=== PATIENT | female | born 1950 | race Caucasian/White ===

== ENCOUNTER → 2016-11-21 | Outpatient (REF) | payer OTHER ==
[2016-11-21 14:24] LABS: FERRITIN 501 NG/ML (8-252)
[2016-11-21 14:29] LABS: VITAMIN B12 LEVEL 420 PG/ML (247-911)
== END ==
LOC: M LAB REF 13:50
PROVIDERS: ATTEND Internal Medicine
DX: C95.01 Acute leukemia of unspecified cell type, in remission (principal); Z98.84 Bariatric surgery status

== ENCOUNTER → 2017-03-25 | Outpatient (REF) | payer OTHER | LOC: M LAB REF 12:03 | PROVIDERS: ATTEND Internal Medicine | DX: Z01.89 Encounter for other specified special examinations (principal) ==

== ENCOUNTER → 2017-04-17 | Outpatient (REF) | payer OTHER ==
[~2017-04-17] MED LIST: FIBE625T PO; FLUO40CA PO; VENL150C43 PO; VITA100067 PO
== END ==
LOC: M LAB REF 12:46
PROVIDERS: ATTEND Internal Medicine
DX: N39.0 Urinary tract infection, site not specified (principal)

== ENCOUNTER 2017-07-01 07:11 | Outpatient (CLI) | payer OTHER ==
[~2017-07-01] VITALS: Ht 162.6 cm; Wt 90.7 kg
[~2017-07-01 07:11] MED LIST changes: +LIDOCAINE 2% INJ 100 MG/5 ML SDV (FOR ANES.) As Ordered ONE; +PROPOFOL 200 MG/20 ML VIAL As Ordered ONE
[2017-07-01] MEDS ORDERED: NS 1,000 ML IV SCH (07:30)
--- NOTE | 2017-07-01 08:56 | ROOR ---
Patient Name: Albertina Brandt Procedure Date: 07/01/2017 8:27 AM Date of : 1950 Age: 67 Room: [facility] Gender: Female Note Status: Finalized Procedure: Total Colonoscopy to Cecum + Cold Snare Polypectomy + Hemoclip + Biopsies Indications: Clinically significant diarrhea of unexplained origin Providers: Igor Snell MD Referring MD: Bianka HAQUE MD Requesting Provider: Medicines: Monitored Anesthesia Care Complications: No immediate complications. Procedure: Pre-Anesthesia Assessment: - The heart rate, respiratory rate, oxygen saturations, blood pressure, adequacy of pulmonary ventilation, and response to care were monitored throughout the procedure. The Colonoscope was introduced through the anus and advanced to the cecum, identified by appendiceal orifice and ileocecal valve. The colonoscopy was performed without difficulty. The patient tolerated the procedure well. The quality of the bowel preparation was excellent. Findings: The perianal and digital rectal examinations were normal. Non-bleeding internal hemorrhoids were found during retroflexion. The hemorrhoids were mild, small and Grade I (internal hemorrhoids that do not prolapse). Two sessile polyps were found at 50 cm proximal to the anus. The polyps were small in size. These polyps were removed with a cold snare. Resection and retrieval were complete. To prevent bleeding after the polypectomy, one hemostatic clip was successfully placed (MR conditional). There was no bleeding at the end of the procedure. Biopsies for histology were taken with a cold forceps from the ascending colon, transverse colon and descending colon for evaluation of microscopic colitis. The exam was otherwise without abnormality on direct and retroflexion views. Impression: - Non-bleeding internal hemorrhoids. - Two small polyps at 50 cm proximal to the anus, removed with a cold snare. Resected and retrieved. Clip (MR conditional) was placed. - The examination was otherwise normal on direct and retroflexion views. - Biopsies were taken with a cold forceps from the ascending colon, transverse colon and descending colon for evaluation of microscopic colitis. - The exam was otherwise normal to the cecum. Recommendation: - Patient has a contact number available for emergencies. The signs and symptoms of potential delayed complications were discussed with the patient. Return to normal activities tomorrow. Written discharge instructions were provided to the patient. - High fiber diet. - Discharge patient to home. - Await pathology results. - Telephone GI clinic for pathology results in 1 week. - Telephone GI clinic for pathology results in 1 week. - Repeat colonoscopy in 5 years for surveillance based on pathology results. - Return to referring physician. - The findings and recommendations were discussed with the patient's family. Igor Snell MD Igor Snell MD 07/01/2017 8:55:58 AM This report has been signed electronically. Number of Addenda: 0 Note Initiated On: 07/01/2017 8:27 AM Estimated Blood Loss: Estimated blood loss: none.
[2017-07-01 09:20] VITALS: BP 139/87
== END 2017-07-01 09:35 | disposition home or self-care (01) ==
LOC: M OPP 07:11
PROVIDERS: ATTEND Internal Medicine Gastroenterology
DX: K58.0 Irritable bowel syndrome with diarrhea (principal); D12.5 Benign neoplasm of sigmoid colon; K64.0 First degree hemorrhoids; Z85.6 Personal history of leukemia; Z92.21 Personal history of antineoplastic chemotherapy; F41.9 Anxiety disorder, unspecified; F32.9 Major depressive disorder, single episode, unspecified; Z78.0 Asymptomatic menopausal state; Z98.84 Bariatric surgery status; Z88.5 Allergy status to narcotic agent; Z79.899 Other long term (current) drug therapy; Z80.42 Family history of malignant neoplasm of prostate; Z80.41 Family history of malignant neoplasm of ovary

== ENCOUNTER → 2017-10-08 | Outpatient (REF) | payer OTHER | LOC: M LAB REF 13:13 | DX: R19.7 Diarrhea, unspecified (principal) | CPT/HCPCS: 87507 ==

== ENCOUNTER → 2017-12-22 | Outpatient (CLI) | payer OTHER | LOC: M CARPUL 10:08 | DX: R06.02 Shortness of breath (principal); Z79.899 Other long term (current) drug therapy | CPT/HCPCS: 71046 ==

== ENCOUNTER → 2018-07-24 | Outpatient (REF) | payer OTHER ==
[2018-07-24 15:39] LABS: FOLATE 5.9 NG/ML
== END ==
LOC: M LAB REF 12:42
DX: Z98.84 Bariatric surgery status (principal)
CPT/HCPCS: 82746

== ENCOUNTER → 2019-06-09 | Outpatient (CLI) | payer OTHER ==
[~2019-06-09] MED LIST changes: -LIDOCAINE 2% INJ 100 MG/5 ML SDV (FOR ANES.) As Ordered ONE; -PROPOFOL 200 MG/20 ML VIAL As Ordered ONE
--- NOTE | 2019-06-09 12:55 | REP ---
RIGHT CLAVICLE, TWO VIEWS: Two views of the right clavicle performed. I seen no acute fracture, dislocation, or intrinsic bone disease. There is mild narrowing and spurring at the acromioclavicular joint. IMPRESSION: No acute fracture or dislocation. Electronically Signed by Luisito Gipson MD 06/10/2019 09:27 A
--- NOTE | 2019-06-09 12:56 | REP ---
RIGHT SHOULDER, THREE VIEWS: Three views of the right shoulder performed. There is no acute fracture or dislocation. There is mild narrowing and spurring at the acromioclavicular joint. IMPRESSION: No acute fracture or dislocation. Electronically Signed by Luisito Gipson MD 06/10/2019 09:27 A
--- NOTE | 2019-06-09 12:56 | REP ---
RIGHT HUMERUS, TWO VIEWS: There is no evidence of an acute fracture, dislocation or intrinsic bone disease. IMPRESSION: No fracture or dislocation. Electronically Signed by Luisito Gipson MD 06/10/2019 09:27 A
== END ==
LOC: M WUC 10:59
PROVIDERS: ATTEND Physician Assistant
DX: S40.011A Contusion of right shoulder, initial encounter (principal); Y93.9 Activity, unspecified; Y92.9 Unspecified place or not applicable

== ENCOUNTER → 2019-08-05 | Outpatient (REF) | payer MEDICARE ==
[2019-08-05 13:22] LABS: FOLATE 3.3 NG/ML
== END ==
LOC: M LAB REF 12:26
PROVIDERS: ATTEND Internal Medicine
DX: Z98.84 Bariatric surgery status (principal)

== ENCOUNTER → 2019-08-23 | Outpatient (REF) | payer MEDICARE ==
[2019-08-23 13:41] LABS: BACTERIA, URINE AUTO 1+ (NEGATIVE); CALCIUM OXALATE CRYSTALS SMALL; MUCUS, URINE SMALL (NEGATIVE); RBC, URINE AUTO 11 /HPF (0-3); RENAL EPITHELIAL CELLS 1 /HPF; SQUAMOUS EPITHELIAL CELL UR AU 5 /HPF (0-6); TRANSITIONAL EPITHELIAL AUTO 1 /HPF; WBC, URINE AUTO TNTC /HPF (0-3)
== END ==
LOC: M LAB REF 12:12
PROVIDERS: ATTEND Internal Medicine
DX: R31.9 Hematuria, unspecified (principal)

== ENCOUNTER → 2019-11-01 | Outpatient (REF) | payer MEDICARE | LOC: M LAB REF 12:12 | PROVIDERS: ATTEND Internal Medicine | DX: N39.0 Urinary tract infection, site not specified (principal) ==

== ENCOUNTER → 2019-11-19 | Outpatient (REF) | payer MEDICARE ==
[2019-11-19 16:00] LABS: FOLATE 2.8 NG/ML
== END ==
LOC: M LAB REF 12:23
PROVIDERS: ATTEND Internal Medicine
DX: Z98.84 Bariatric surgery status (principal)

== ENCOUNTER → 2020-02-06 | Outpatient (REF) | payer MEDICARE | LOC: M LAB REF 18:51 | PROVIDERS: ATTEND Physician Assistant | DX: N39.0 Urinary tract infection, site not specified (principal) ==

== ENCOUNTER → 2020-02-22 | Outpatient (REF) | payer MEDICARE ==
[2020-02-22 15:06] LABS: FOLATE 10.7 NG/ML
== END ==
LOC: M LAB REF 13:53
PROVIDERS: ATTEND Internal Medicine
DX: Z98.84 Bariatric surgery status (principal)

== ENCOUNTER → 2020-04-27 | Outpatient (REF) | payer MEDICARE ==
[~2020-04-27] MED LIST changes: +ACET1TAB55 PO; +BUPR150T3 PO; +CEFP200T PO; +D31000TA2 PO; +ESTR0.1C5; +FLUO20CA22 PO; +FOLI1TAB11 PO; +OXYB5TAB10; +SULF1TAB93
[2020-05-25 22:29] LABS: APPEARANCE, URINE CLOUDY (CLEAR); BACTERIA, URINE AUTO 1+ (NEGATIVE); BILIRUBIN, URINE AUTO NEGATIVE (NEGATIVE); BLOOD, URINE BLOOD 2+ (NEGATIVE); CALCIUM OXALATE CRYSTALS LARGE; COLOR, URINE YELLOW (YELLOW); GLUCOSE, URINE (UA) AUTO NEGATIVE (NEGATIVE); INR 0.92; KETONE, URINE AUTO NEGATIVE (NEGATIVE); LEUKOCYTE ESTERASE, URINE AUTO 3+ (NEGATIVE); MUCUS, URINE SMALL (NEGATIVE); NITRITE, URINE AUTO POSITIVE (NEGATIVE); PROTEIN, URINE AUTO NEGATIVE (NEGATIVE); PROTHROMBIN TIME 12.5 SECONDS (11.8-14.0); RBC, URINE AUTO 8 /HPF (0-3); SPECIFIC GRAVITY URINE AUTO 1.018 (1.002-1.035); SQUAMOUS EPITHELIAL CELL UR AU 1 /HPF (0-6); UROBILINOGEN, URINE AUTO 0.2 mg/dL (0.0-2.0); WBC, URINE AUTO TNTC /HPF (0-3)
== END ==
LOC: M LAB REF 17:49
PROVIDERS: ATTEND Internal Medicine
DX: Z01.818 Encounter for other preprocedural examination (principal); N20.0 Calculus of kidney

== ENCOUNTER 2020-05-05 08:00 | Day surgery (SDC) | payer MEDICARE ==
[~2020-05-05 08:00] MED LIST changes: -ACET1TAB55 PO; -BUPR150T3 PO; -CEFP200T PO; -D31000TA2 PO; -ESTR0.1C5; -FLUO20CA22 PO; -FOLI1TAB11 PO; -OXYB5TAB10; -SULF1TAB93
[2020-05-05] MEDS ORDERED: ceFAZolin 2 GM/D5W 50 ML IV BAG (J0690 PER 500MG) As Ordered ONE (08:16)
[2020-05-05] MEDS ORDERED: propofoL 200 MG/20 ML VIAL As Ordered ONE (08:22)
[2020-05-05] MEDS ORDERED: dexameTHASONE 4 MG/ML 1ML VIAL (J1100 PER 1MG) As Ordered ONE (08:22)
[2020-05-05] MEDS ORDERED: LIDOCAINE 2% 100MG/5ML SDV (FOR ANES.) As Ordered ONE (08:22)
[2020-05-05] MEDS ORDERED: fentaNYL 100 MCG/2 ML INJECTION (J3010) As Ordered ONE (08:22)
[2020-05-05] MEDS ORDERED: MIDAZOLAM INJ 2MG/2ML VIAL (J2250 PER 1MG) As Ordered ONE (08:22)
[2020-05-05] MEDS ORDERED: ONDANSETRON 4MG/2ML VIAL As Ordered ONE (08:22)
[2020-05-05] MEDS ORDERED: CONRAY-60 60% 50ML VIAL (Q9961) As Ordered ONE (09:27)
[2020-05-05] MEDS ORDERED: SCOPOLAMINE 1MG TRANSDERMAL PATCH As Ordered ONE (09:57)
[2020-05-05] MEDS ORDERED: METOCLOPRAMIDE INJ 10MG/2ML VIAL (J2765 PER 1) As Ordered ONE (10:35)
[2020-05-05] MEDS ORDERED: ACETAMINOPHEN 1000MG 100ML IV BTL (OFIRMEV) (J0131 PER 10MG) As Ordered ONE (10:38)
[2020-05-05] MEDS ORDERED: LACRILUBE (AKWA TEARS) OPHTH OINT 3.5 GM As Ordered ONE (10:38)
[2020-05-05] MEDS ORDERED: oxyBUTYnin 5 MG TAB As Ordered ONE (13:21)
[2020-05-05] MEDS ORDERED: oxyCODONE 5MG TAB As Ordered ONE (13:21)
[2020-06-21 13:08] LABS: CA Oxalate Dihy 20 % (.); Ca Ox Monohydrate 80 % (.); Size 3x3 mm (.)
--- NOTE | 2020-06-27 10:02 | REP ---
C-ARM VIEWS ABDOMEN AND PELVIS DURING URETERAL STENT PLACEMENT TECHNIQUE: Three C-arm views abdomen and pelvis performed during bilateral ureteral stent placement. FINDINGS: Contrast partially opacifies both pelvicalyceal systems. Bilateral ureteral stents are placed. The proximal end of each stent is in the respective renal pelvis. Distal end of each stent is in the urinary bladder. There was 38 seconds of fluoroscopy time utilized. MTDD
--- NOTE | 2020-07-06 12:49 | RO ---
DATE OF OPERATION: 05/05/2020 PREPROCEDURE DIAGNOSIS: Bilateral kidney stones. POSTPROCEDURE DIAGNOSIS: Bilateral kidney stones. PROCEDURE: Cystoscopy, bilateral ureteroscopy with laser lithotripsy and basket extraction of stones, bilateral retrograde pyelograms with intraoperative interpreted images, and bilateral renal stent placement. SURGEON: Mayank Delgado MD MANAGER OF COMPLIANCE: None. ANESTHESIA: General. INDICATIONS FOR PROCEDURE: This is a 69-year-old female who was found on CT scan recently to have bilateral kidney stones greater than 2 cm on the left side and one measuring around 8 mm on the right. She was brought to the operating room today for treatment. DESCRIPTION OF PROCEDURE: The patient was brought to the operating room and general anesthesia was inducted. Prophylactic antibiotics were infused. She was then placed in the dorsal lithotomy position, and prepped and draped in the usual sterile fashion. A rigid cystoscope was inserted in the urethral meatus and advanced into the bladder. A guidewire was advanced up the left collecting system. I then advanced the ureteral access sheath up the left collecting system. I loaded the access sheath with a flexible ureteroscope and within the left renal pelvis, there was a stone seen that was greater than 2 cm in size. I utilized an Excalibur laser fiber to dust the majority of the stone to small enough pieces so that the patient could pass them. Once this was done, I utilized a basket to retrieve the larger stone fragments that were remaining. Once done with that, the remaining stones appeared to be small enough to pass. A retrograde pyelogram was performed and was notable for moderate left hydronephrosis with no extravasation. I then removed the ureteroscope along with the access sheath and no additional stones were seen inside the ureter. I then utilized the wire to advance a 7-Australian x 22-32 cm JJ ureteral stent into the left collecting system. The wire was removed and there were adequate curls of the stent in the left renal pelvis and the bladder. At this point, I advanced a guidewire up the right collecting system. A ureteral access sheath was advanced up the right collecting system. I went up the access sheath with the flexible ureteroscope and within the right renal pelvis, an 8-mm stone was seen. The stone was fragmented into smaller pieces using the Excalibur laser fiber and then all the larger fragments were removed, and those fragments were removed using a basket. Once done, only tiny stone fragments remained. I then shot a retrograde pyelogram and it was notable for moderate right hydronephrosis with no extravasation. I then withdrew the ureteroscope along with access sheath and no additional stones were seen inside the ureter. I then utilized the guidewire to advance a 7-Australian x 22-32 cm JJ ureteral stent up the right collecting system. The wire was removed and there were good coils of the stent in the right renal pelvis and the bladder. The bladder was then emptied of all fluids and this marked conclusion of the procedure. The patient was taken out of the dorsal lithotomy position, awakened from anesthesia, and transferred to the recovery room in stable condition. ESTIMATED BLOOD LOSS: 10 mL. COMPLICATIONS: None. SPECIMENS: Kidney stone fragments. PLAN: I will leave the patients stent in for approximately three to four weeks. I will get a KUB to see if she has passed all the stone fragments and if so, I will take her stents out in the office. DEEPTI
== END 2020-05-05 13:10 | disposition home or self-care (01) ==
LOC: M SDC 08:00
PROVIDERS: ATTEND Urology
DX: N20.0 Calculus of kidney (principal); F41.9 Anxiety disorder, unspecified; F32.9 Major depressive disorder, single episode, unspecified; Z98.84 Bariatric surgery status; Z88.8 Allergy status to other drugs, medicaments and biological substances; Z92.21 Personal history of antineoplastic chemotherapy; Z79.899 Other long term (current) drug therapy
CPT/HCPCS: 52356; 74420; 82365; 88300; C1769; C1894; C2617; J0131; J0690; J1100; J2250; J2405; J2765; J3010; Q9961

== ENCOUNTER → 2020-05-19 | Outpatient (CLI) | payer MEDICARE ==
[~2020-05-19] MED LIST changes: +ACET1TAB55 PO; +BUPR150T3 PO; +CEFP200T PO; +D31000TA2 PO; +ESTR0.1C5; +FLUO20CA22 PO; +FOLI1TAB11 PO; +OXYB5TAB10; +SULF1TAB93
--- NOTE | 2020-07-10 08:58 | REP ---
KUB: SINGLE VIEW HISTORY: Kidney stones. FINDINGS: Supine film of the abdomen demonstrates a normal bowel gas pattern. There are scattered surgical clips throughout the abdomen along the abdomen wall. Bilateral double pigtailed ureteral stents are noted in place. There is intrarenal calcific material projecting bilaterally largest extent in the lower pole on the left. There are clips in the right upper quadrant as well. IMPRESSION: Bilateral intrarenal nephrolithiasis. Bilateral double pigtailed ureteral stent in place. Postoperative changes. MTDD
== END ==
LOC: M RAD 15:38
PROVIDERS: ATTEND Urology
DX: N20.0 Calculus of kidney (principal); Z96.0 Presence of urogenital implants

== ENCOUNTER 2020-05-25 10:47 | Inpatient (IN) | payer MEDICARE ==
[~2020-05-25] VITALS: Ht 160 cm; Wt 83.3 kg
[~2020-05-25 10:47] MED LIST changes: -ACET1TAB55 PO; -BUPR150T3 PO; -CEFP200T PO; -D31000TA2 PO; -ESTR0.1C5; -FLUO20CA22 PO; -FOLI1TAB11 PO; -OXYB5TAB10; -SULF1TAB93
[2020-05-25] MEDS ORDERED: SULF1TAB93 (11:02)
[2020-05-25] MEDS ORDERED: ESTR0.1C5 (11:02)
[2020-05-25] MEDS ORDERED: BUPR150T3 PO (11:02)
[2020-05-25] MEDS ORDERED: OXYB5TAB10 (11:02)
[2020-05-25] MEDS ORDERED: NS 500 ML IV ONE (12:45)
--- NOTE | 2020-05-25 13:14 | REPVR ---
PROCEDURE INFORMATION: Exam: CT Head Without Contrast Exam date and time: 05/25/2020 12:42 PM Age: 69 years old Clinical indication: Other: CVA; Additional info: CVA - nursing interventions must not delay CT TECHNIQUE: Imaging protocol: Computed tomography of the head without contrast. Radiation optimization: All CT scans at this facility use at least one of these dose optimization techniques: automated exposure control; mA and/or kV adjustment per patient size (includes targeted exams where dose is matched to clinical indication); or iterative reconstruction. COMPARISON: No relevant prior studies available. FINDINGS: Brain: No acute intracranial hemorrhage, cerebral edema, or midline shift. Ventricles: No hydrocephalus. Bones/joints: No acute fracture. Sinuses: No acute sinusitis. Mastoid air cells: Visualized mastoid air cells are well aerated. Orbits: The included orbital structures are unremarkable. Soft tissues: Unremarkable. IMPRESSION: No acute intracranial abnormality. Electronically signed by: Alf Jiang On 05/25/2020 13:14:48 PM
--- NOTE | 2020-05-25 13:14 | REPVR ---
PROCEDURE INFORMATION: Exam: XR Chest, 1 View Exam date and time: 05/25/2020 1:03 PM Age: 69 years old Clinical indication: Other: CVA TECHNIQUE: Imaging protocol: XR of the chest Views: 1 view. COMPARISON: CR Chest, 2 view PA, Lat 12/22/2017 10:24 AM FINDINGS: Lungs: Unremarkable. No consolidation. Pleural space: Unremarkable. No pleural effusion. No pneumothorax. Heart/Mediastinum: Unremarkable. No cardiomegaly. Bones/joints: Degenerative change of the spine. IMPRESSION: No acute cardiopulmonary abnormality. Electronically signed by: Kristin Chisholm On 05/25/2020 13:14:30 PM
--- NOTE | 2020-05-25 13:23 | REPVR ---
PROCEDURE INFORMATION: Exam: CT Cervical Spine Without Contrast Exam date and time: 05/25/2020 12:42 PM Age: 69 years old Clinical indication: Injury or trauma; Fall; Initial encounter; Blunt trauma TECHNIQUE: Imaging protocol: Computed tomography images of the cervical spine without contrast. Radiation optimization: All CT scans at this facility use at least one of these dose optimization techniques: automated exposure control; mA and/or kV adjustment per patient size (includes targeted exams where dose is matched to clinical indication); or iterative reconstruction. COMPARISON: No relevant prior studies available. FINDINGS: Vertebrae: There is straightening of the normal cervical lordosis. There is no acute fracture. Discs/Spinal canal/Neural foramina: Moderate degenerative changes of the cervical spine are present. There is moderate/severe spinal canal stenosis at C4-C5, C5-C6, and C6-C7 due to posterior disc osteophyte complexes. Multilevel neural foraminal narrowing from uncinate spurring and facet arthropathy is noted. Soft tissues: Unremarkable. Lungs: Lung apices are normal. IMPRESSION: 1. No acute abnormality. 2. Chronic findings as discussed above. Electronically signed by: Alf Jiang On 05/25/2020 13:24:22 PM
[2020-05-25 13:29] LABS: BASO % 0.2 % (0.0-1.0); HEMATOCRIT 40.1 % (36.0-47.0); HEMOGLOBIN 12.2 g/dl (12.0-15.5); LYMPH # 0.5 10^3/uL (1.5-5.0); LYMPH % 3.5 % (24.0-44.0); MEAN CORPUSCULAR HEMOGLOBIN 26.5 pg (27.0-33.0); MEAN CORPUSCULAR HGB CONC 30.4 g/dl (32.0-36.5); MONO # 1.5 10^3/uL (0.0-0.8); MONO % 11.6 % (0.0-5.0); NEUTROPHILS # 10.8 10^3/uL (1.5-8.5); NEUTROPHILS % 83.9 % (36.0-66.0); PLATELET COUNT, AUTOMATED 147 10^3/uL (150-450); RED BLOOD COUNT 4.61 10^6/uL (4.00-5.40); WHITE BLOOD COUNT 12.9 10^3/uL (4.0-10.0)
[2020-05-25 13:36] LABS: INR 1.06
[2020-05-25 13:37] LABS: PARTIAL THROMBOPLASTIN TIME 30.3 SECONDS (25.0-38.4)
[2020-05-25 14:12] LABS: ALBUMIN 3.3 GM/DL (3.2-5.2); ALT/SGPT 21 U/L (12-78); BILIRUBIN,DIRECT 0.2 MG/DL (0.0-0.2); BILIRUBIN,TOTAL 0.5 MG/DL (0.2-1.0); BLOOD UREA NITROGEN 26 MG/DL (7-18); CALCIUM LEVEL 8.7 MG/DL (8.8-10.2); CARBON DIOXIDE LEVEL 24 MEQ/L (21-32); CHLORIDE LEVEL 106 MEQ/L (98-107); CK-MB VALUE MASS 3.5 NG/ML (<3.6); CPK CREATINE PHOSPHOKINASE 926 U/L (26-192); CREATININE FOR GFR 1.29 MG/DL (0.55-1.30); FREE T4 1.04 NG/DL (0.76-1.46); GLOMERULAR FILTRATION RATE 43.8 (>45); GLUCOSE, FASTING 145 MG/DL (70-100); MAGNESIUM LEVEL 1.9 MG/DL (1.8-2.4); MB/CK RELATIVE INDEX 0.38 (< OR =4); PHOSPHORUS LEVEL 2.6 MG/DL (2.5-4.9); POTASSIUM SERUM 3.4 MEQ/L (3.5-5.1); SODIUM LEVEL 137 MEQ/L (136-145); THYROID STIMULATING HORMONE 0.987 uIU/ML (0.358-3.740); TOTAL PROTEIN 6.6 GM/DL (6.4-8.2); TROPONIN I < 0.02 NG/ML (< 0.10)
[2020-05-25] MEDS ORDERED: POTASSIUM CHLORIDE 10 MEQ SR TABLET PO ONE (14:15)
[2020-05-25 15:04] VITALS: O2SAT 97
[2020-05-25] MEDS ORDERED: D31000TA2 PO (15:36)
[2020-05-25] MEDS ORDERED: FOLI1TAB11 PO (15:36)
[2020-05-25] MEDS ORDERED: FLUO20CA22 PO (15:36)
[2020-05-25] MEDS ORDERED: MOM 30ML SUSPENSION UDC PO PRN (15:45)
[2020-05-25] MEDS: NS 1,000 ML IV SCH (15:45)
[2020-05-25] MEDS ORDERED: MAALOX 30 ML SUSP *UDC PO PRN (15:45)
--- NOTE | 2020-05-25 16:15 | HPEPDOC ---
General Date of Admission May 25, 2020 at 15:33 Date of Service: May 25, 2020 Chief Complaint The patient is a 69-year-old female admitted with a reason for visit of Frequent Falls Gait Disturbance. Source: Patient Exam Limitations: No limitations Timing/Duration: Other (2 days) Severity: Severe Associated Symptoms: Other (dizzyness) History of Present Illness 69 YO female with PMHx of recurrent kidney stones,leukemia, depresion,dysthymia was in her usual state of health till Friday(05/22), when her two uretral stents were removed, she flt some dull ache in abdomen but it resolved spontanoiusly but since last two days, she has been feeling dizzyness, loosing her balance and fell two times. She flls like she is flying when she takes a down step, and has weakneess in getting out of bed. No headache, no fever, no urinary incontinence.She stopped taking all her pills about two days ago once the symptoms appeared. Home Medications Scheduled Bupropion Hcl (Bupropion Xl) 150 Mg Tab.er.24h, 150 MG PO DAILY, (Reported) Calcium Polycarbophil (Fibercon) 625 Mg Tab, 625 MG PO DAILY, (Reported) Cholecalciferol (Vitamin D3) (Vitamin D3) 1,000 Unit Tablet, 1,000 UNITS PO DAILY, (Reported) Fluoxetine Hcl (Fluoxetine HCl) 40 Mg Cap, 40 MG PO DAILY, (Reported) TAKES WITH 20MG FOR TOTAL DOSE OF 60MG Fluoxetine Hcl (Fluoxetine HCl) 20 Mg Capsule, 20 MG PO DAILY, (Reported) TAKES WITH 40MG FOR TOTAL DOSE OF 60MG Folic Acid (Folic Acid) 1 Mg Tablet, 1 MG PO DAILY, (Reported) Allergies Coded Allergies: meperidine (Verified Adverse Reaction, Unknown, nausea, 05/25/20) Past Medical History Medical History Recurrent kidney stone, leukemia,depression,dysthymia Surgical History cholecystectomy Family History father had bladder cancer Social History * Smoker: Denies Alcohol: Denies Drugs: denies A-FIB/CHADSVASC A-FIB History Current/History of A-Fib/PAF?: No Review of Systems Constitutional: Denies: Chills, Fever, Malaise, Night Sweats, Weakness, Fatigue, Weight Loss, Lethargy, Other Eyes: Denies: Pain, Vision change, Conjunctivae inflammation, Eyelid infl ammation, Redness, Other ENT: Denies: Head Aches, Ear Pain, Dysphagia, Sinus Congestion, Post Nasal Drip, Sore Throat, Epistaxis, Other Symptoms Skin: Denies: Rash, Lesions, Jaundice, Bruising, Itching, Dry, Breakdown, Nail Changes, Other Pulmonary: Denies: Dyspnea, Cough, Pleuritic Chest Pain, Other Symptoms Cardiovascular: Denies: Chest Pain, Palpitations, Orthopnea, Paroxysmal Noc. Dyspnea, Edema, Lt Headedness, Other Symptoms Gastrointestinal: Denies: Nausea, Vomiting, Abdominal Pain, Diarrhea, Constipation, Melena, Hematochezia, Other Symptoms Genitourinary: Denies: Dysuria, Frequency, Incontinence, Hematuria, Retention, Other Symptoms Hematologic: Denies: Bruising, Bleeding Excessively, Petecchia, Purpura, Enlarged Lymph Nodes, Other Hematologic Endocrine: Denies: Polydipsia, Polyphagia, Polyuria, Heat Intolerance, Cold Intolerance, Other Endocrine Sx Musculoskeletal: Reports: Other Symptoms (lower body muscle weakness) Neurological: Reports: Other Symptoms (loss of balance) Psych: Denies: Mood Normal, Anxiety, Depression, Memory Issues, Thoughts of Self Harm, Anger, Thoughts of Harming Other, Other Psych Physical Examination General Exam: Positive: Alert, Cooperative Eye Exam: Positive: PERRLA, Conjunctiva & lids normal ENT Exam: Positive: Atraumatic Neck Exam: Positive: Supple Chest Exam: Positive: Clear to auscultation, Normal air movement Heart Exam: Positive: Rate Normal, Regular Rhythm, Normal S1 Abdomen Exam: Positive: Normal bowel sounds Extremity Exam: Positive: Normal pulses Skin Exam: Positive: Nl turgor and temperature Neuro Exam: Positive: Strength at 5/5 X4 ext, Sensation Intact, Cranial Nerves 3-12 NL Psych Exam: Positive: Mental status NL, Memory Intact, Oriented x 3 Vital Signs Vital Signs Date Time Temp Pulse Resp B/P (MAP) Pulse Ox O2 Delivery O2 Flow Rate FiO2 05/25/20 15:04 97 Room Air 05/25/20 15:03 76 120/59 (79) 87 140/72 (94) 90 134/65 (88) 05/25/20 10:49 98.2 20 Laboratory Data Labs 24H Laboratory Tests 2 05/25/20 12:50: Immature Granulocyte % (Auto) 0.8, Neutrophils (%) (Auto) 83.9H, Lymphocytes (%) (Auto) 3.5L, Monocytes (%) (Auto) 11.6H, Eosinophils (%) (Auto) 0.0, Basophils (%) (Auto) 0.2, Neutrophils # (Auto) 10.8H, Lymphocytes # (Auto) 0.5L, Monocytes # (Auto) 1.5H, Eosinophils # (Auto) 0.0, Basophils # (Auto) 0.0, Nucleated Red Blood Cells % (auto) 0.0, Prothrombin Time 14.0, Prothromb Time International Ratio 1.06, Activated Partial Thromboplast Time 30.3, Anion Gap 7L, Glomerular Filtration Rate 43.8L, Calcium Level 8.7L, Phosphorus Level 2.6, Magnesium Level 1.9, Total Bilirubin 0.5, Direct Bilirubin 0.2, Aspartate Amino Transf (AST/SGOT) 24, Alanine Aminotransferase (ALT/SGPT) 21, Alkaline Phosphatase 53, Total Creatine Kinase 926H, Creatine Kinase MB 3.5, Creatine Kinase MB Relative Index 0.38, Troponin I < 0.02, Total Protein 6.6, Albumin 3.3, Albumin/Globulin Ratio 1.0L, Thyroid Stimulating Hormone (TSH) 0.987, Free Thyroxine 1.04 CBC/BMP Laboratory Tests 05/25/20 12:50 Problems (1) Gait disturbance Status: Acute Problem Text: admit to med surg floor with tele All w/u including CT head are negative Etiology of weakness unclear but can not R/O cerebellar infarct, adverse drug raction or interaction after the urology procedure, adverse effect to anesthetic agents. MRI brain pending ECHO was done in 2018 with EF of 60%, will repeat again EKG: NSR, no st-t changes CK slightly elevated: most likely secondary to fall PT/OT eval ESR,U/A and Urine C&S ordered Serial troponins IVF NS AT 100cc/hr DVT prphylaxis with SCD Diet reg OOB with assistance (2) Frequent falls Status: Acute Problem Text: as above (3) Depression Status: Chronic Problem Text: Hold wellbutrin and prozac till pt is clinically stable Plan / VTE VTE Prophylaxis Ordered?: Yes RODRI SCHWARTZ MD May 25, 2020 16:15
[2020-05-25 17:43] LABS: ERYTHROCYTE SEDIMENTATION RATE 67 mm/hr (0-30)
--- NOTE | 2020-05-25 18:00 | REPVR ---
PROCEDURE INFORMATION: Exam: MR Angiogram Head Without Contrast, Arteries Exam date and time: 05/25/2020 2:56 PM Age: 69 years old Clinical indication: Weakness; Patient HX: Nausia, vomitting, fall; Additional info: CVA TECHNIQUE: Imaging protocol: MR angiogram head without contrast. Exam focused on the arteries. COMPARISON: CT Head without contrast 05/25/2020 12:51 PM FINDINGS: ANTERIOR CIRCULATION: Right internal carotid artery: Intracranial segment is patent with no significant stenosis. No aneurysm. Right middle cerebral artery: No occlusion or significant stenosis. No aneurysm. Right anterior cerebral artery: No occlusion or significant stenosis. No aneurysm. Left internal carotid artery: Intracranial segment is patent with no significant stenosis. No aneurysm. Left middle cerebral artery: No occlusion or significant stenosis. No aneurysm. Left anterior cerebral artery: No occlusion or significant stenosis. No aneurysm. POSTERIOR CIRCULATION: Right vertebral artery: No occlusion or significant stenosis. No aneurysm. Left vertebral artery: No occlusion or significant stenosis. No aneurysm. Basilar artery: No occlusion or significant stenosis. No aneurysm. Right posterior cerebral artery: No occlusion or significant stenosis. No aneurysm. Left posterior cerebral artery: No occlusion or significant stenosis. No aneurysm. IMPRESSION: No stenosis or occlusion. Electronically signed by: Alf Jiang On 05/25/2020 17:59:59 PM
--- NOTE | 2020-05-25 18:03 | REPVR ---
PROCEDURE INFORMATION: Exam: MR Head Without Contrast Exam date and time: 05/25/2020 2:56 PM Age: 69 years old Clinical indication: Weakness, extremity; Bilateral; Patient HX: Nausea, vomitting, fall; Additional info: CVA TECHNIQUE: Imaging protocol: MR of the head without contrast. COMPARISON: CT Head without contrast 05/25/2020 12:51 PM FINDINGS: Limitations: The study is mildly limited due to patient motion artifact. Brain: There is no acute intracranial hemorrhage, cerebral edema, or midline shift. No restricted diffusion is present to suggest acute infarction. Ventricles: No hydrocephalus. Bones/joints: Unremarkable. Sinuses: Normal as visualized. No acute sinusitis. Mastoid air cells: Normal as visualized. No mastoid effusion. Orbits: Unremarkable. Soft tissues: Unremarkable. IMPRESSION: 1. Mildly limited exam due to motion artifact 2. No acute intracranial abnormality. Electronically signed by: Alf Jiang On 05/25/2020 18:03:02 PM
[2020-05-25 18:08] VITALS: BP 179/81
[2020-05-25] MEDS: ACETAMINOPHEN TAB 650MG DOSE (2X325MG) PO PRN (18:36)
[2020-05-25 18:40] VITALS: BP 122/74
[2020-05-25] MEDS ORDERED: ONDANSETRON 4MG/2ML VIAL IV PRN (19:00)
[2020-05-25] MEDS: DOCUSATE SODIUM 100 MG CAP PO SCH (21:00)
[2020-05-25 22:00] VITALS: BP 117/53
[2020-05-26] MEDS: ACETAMINOPHEN TAB 650MG DOSE (2X325MG) PO PRN ×2 (01:44→14:21)
[2020-05-26 02:39] LABS: AMORPHOUS SEDIMENT SMALL (NEGATIVE); APPEARANCE, URINE HAZY (CLEAR); BACTERIA, URINE AUTO 1+ (NEGATIVE); BILIRUBIN, URINE AUTO NEGATIVE (NEGATIVE); BLOOD, URINE BLOOD 3+ (NEGATIVE); COLOR, URINE YELLOW (YELLOW); GLUCOSE, URINE (UA) AUTO NEGATIVE (NEGATIVE); KETONE, URINE AUTO NEGATIVE (NEGATIVE); LEUKOCYTE ESTERASE, URINE AUTO 1+ (NEGATIVE); MUCUS, URINE SMALL (NEGATIVE); NITRITE, URINE AUTO NEGATIVE (NEGATIVE); PROTEIN, URINE AUTO 2+ mg/dL (NEGATIVE); RBC, URINE AUTO 135 /HPF (0-3); SPECIFIC GRAVITY URINE AUTO 1.011 (1.002-1.035); SQUAMOUS EPITHELIAL CELL UR AU 1 /HPF (0-6); TRANSITIONAL EPITHELIAL AUTO 1 /HPF; UROBILINOGEN, URINE AUTO 0.2 mg/dL (0.0-2.0); WBC, URINE AUTO 121 /HPF (0-3)
[2020-05-26] MEDS: NS 1,000 ML IV SCH (04:28)
[2020-05-26 06:00] VITALS: BP 168/80
[2020-05-26 07:05] LABS: HEMOGLOBIN 10.5 g/dl (12.0-15.5); MEAN CORPUSCULAR HEMOGLOBIN 26.8 pg (27.0-33.0); MEAN CORPUSCULAR HGB CONC 30.9 g/dl (32.0-36.5); MEAN CORPUSCULAR VOLUME 86.7 fl (80.0-96.0); PLATELET COUNT, AUTOMATED 122 10^3/uL (150-450); RED BLOOD COUNT 3.92 10^6/uL (4.00-5.40); WHITE BLOOD COUNT 9.6 10^3/uL (4.0-10.0)
[2020-05-26 07:32] LABS: ALBUMIN 2.6 GM/DL (3.2-5.2); ALT/SGPT 19 U/L (12-78); BILIRUBIN,TOTAL 0.3 MG/DL (0.2-1.0); BLOOD UREA NITROGEN 24 MG/DL (7-18); CALCIUM LEVEL 8.1 MG/DL (8.8-10.2); CARBON DIOXIDE LEVEL 24 MEQ/L (21-32); CHLORIDE LEVEL 111 MEQ/L (98-107); CPK CREATINE PHOSPHOKINASE 594 U/L (26-192); CREATININE FOR GFR 1.33 MG/DL (0.55-1.30); GLOMERULAR FILTRATION RATE 42.2 (>45); GLUCOSE, FASTING 110 MG/DL (70-100); MAGNESIUM LEVEL 1.8 MG/DL (1.8-2.4); POTASSIUM SERUM 4.2 MEQ/L (3.5-5.1); SODIUM LEVEL 142 MEQ/L (136-145); TOTAL PROTEIN 5.4 GM/DL (6.4-8.2); TROPONIN I < 0.02 NG/ML (< 0.10)
[2020-05-26] MEDS: FOLIC ACID 1 MG TAB PO SCH (09:42)
[2020-05-26] MEDS: cefTRIAXone SOD 1 GM in D5W MINI-BAG PLUS 50 ML IV SCH (09:42)
[2020-05-26] MEDS: FIBER-CON 625 MG TAB PO SCH (09:42)
[2020-05-26] MEDS: VITAMIN D 1,000 INTERNATIONAL UNITS TABLET PO SCH (09:42)
[2020-05-26] MEDS: DOCUSATE SODIUM 100 MG CAP PO SCH ×2 (09:42→21:00)
--- NOTE | 2020-05-26 11:28 | IPNPDOC ---
Subjective Date Seen The patient was seen on 05/26/20. Subjective Chief Complaint/HPI still has weakness in both LE General: Denies: ROS Unobtainable, Chills, Night Sweats, Fatigue, Malaise, Normal Appetite, Other Symptoms Skin: Denies: Rash, Lesions, Jaundice, Bruising, Itching, Dry, Breakdown, Nail Changes, Other Pulmonary: Denies: Dyspnea, Cough, Pleuritic Chest Pain, Other Symptoms Cardiovascular: Denies: Chest Pain, Palpitations, Orthopnea, Paroxysmal Noc. Dyspnea, Edema, Lt Headedness, Other Symptoms Gastrointestinal: Denies: Nausea, Vomiting, Abdominal Pain, Diarrhea, Constipation, Melena, Hematochezia, Other Symptoms Genitourinary: Denies: Dysuria, Frequency, Incontinence, Hematuria, Retention, Other Symptoms Neurological: Reports: Other Symptoms (Bilat LE weakness) Objective Physical Examination Chest Exam: Positive: Clear to auscultation, Normal air movement Heart Exam: Positive: Rate Normal, Regular Rhythm, Normal S1 Abdomen Exam: Positive: Normal bowel sounds Extremity Exam: Positive: Normal pulses, Other (2/5 strenght in RLE, 4/5 at LLE , 5/5 bilat UE) Skin Exam: Positive: Nl turgor and temperature Neuro Exam: Positive: Sensation Intact, Cranial Nerves 3-12 NL Assessment /Plan Problems (1) Gait disturbance Status: Acute Problem Text: Pts all W/U including MRI and MRA of brain are negative But on exam, there is observable weakness RLE with tend at LS spine on palpation Will request MRI of LS spine and left HIP to R/O compression fx of LS vertebrae or Hip Fx secondary to fall. Hold PT/OT eval Pain management Bed rest (2) Frequent falls Status: Acute Problem Text: Secondary to #1 CK elevated secondary to falls but improving now (3) UTI (urinary tract infection) Status: Acute Problem Text: Pt started on IV Rocephin continue IVF Urine C&S pending Plan/VTE VTE Prophylaxis Ordered?: Yes VS, I&O, 24H, Fishbone Vital Signs/I&O Vital Signs Date Time Temp Pulse Resp B/P (MAP) Pulse Ox O2 Delivery O2 Flow Rate FiO2 05/26/20 06:00 97.6 88 18 168/80 (109) 96 Room Air I&O- Last 24 Hours up to 6 AM 05/26/20 06:00 Intake Total 2600 ml Output Total 400 ml Balance 2200 ml Laboratory Data 24H LABS Laboratory Tests 2 05/25/20 12:50: Immature Granulocyte % (Auto) 0.8, Neutrophils (%) (Auto) 83.9H, Lymphocytes (%) (Auto) 3.5L, Monocytes (%) (Auto) 11.6H, Eosinophils (%) (Auto) 0.0, Basophils (%) (Auto) 0.2, Neutrophils # (Auto) 10.8H, Lymphocytes # (Auto) 0.5L, Monocytes # (Auto) 1.5H, Eosinophils # (Auto) 0.0, Basophils # (Auto) 0.0, Nucleated Red Blood Cells % (auto) 0.0, Erythrocyte Sedimentation Rate 67H, Prothrombin Time 14.0, Prothromb Time International Ratio 1.06, Activated Partial Thromboplast Time 30.3, Anion Gap 7L, Glomerular Filtration Rate 43.8L, Calcium Level 8.7L, Phosphorus Level 2.6, Magnesium Level 1.9, Total Bilirubin 0.5, Direct Bilirubin 0.2, Aspartate Amino Transf (AST/SGOT) 24, Alanine Aminotransferase (ALT/SGPT) 21, Alkaline Phosphatase 53, Total Creatine Kinase 926H, Creatine Kinase MB 3.5, Creatine Kinase MB Relative Index 0.38, Troponin I < 0.02, Total Protein 6.6, Albumin 3.3, Albumin/Globulin Ratio 1.0L, Thyroid Stimulating Hormone (TSH) 0.987, Free Thyroxine 1.04 05/25/20 22:51: Troponin I < 0.02 05/26/20 02:02: Urine Color YELLOW, Urine Appearance HAZY, Urine pH 6.0, Urine Specific [place] 1.011, Urine Protein 2+H, Urine Glucose (Auto)(UA) NEGATIVE, Urine Ketones (A uto) NEGATIVE, Urine Blood 3+H, Urine Nitrite NEGATIVE, Urine Bilirubin NEGATIVE, Urine Urobilinogen 0.2, Urine Leukocyte Esterase (Auto) 1+H, Urine WBC (Auto) 121H, Urine RBC (Auto) 135H, Urine Hyaline Casts (Auto) 1, Urine Bacteria (Auto) 1+H, Urine Squamous Epithelial Cells 1, Urine Transitional Epithelial Cells 1, Urine Amorphous Sediment (Auto) SMALLH, Urine Mucus (Auto) SMALL, Urine Sperm (Auto) 05/26/20 06:48: Nucleated Red Blood Cells % (auto) 0.0, Anion Gap 7L, Glomerular Filtration Rate 42.2L, Calcium Level 8.1L, Magnesium Level 1.8, Total Bilirubin 0.3, Aspartate Amino Transf (AST/SGOT) 20, Alanine Aminotransferase (ALT/SGPT) 19, Alkaline Phosphatase 45, Total Creatine Kinase 594H, Troponin I < 0.02, Total Protein 5.4L, Albumin 2.6#L, Albumin/Globulin Ratio 0.9L CBC/BMP Laboratory Tests 05/25/20 12:50 05/26/20 06:48 Microbiology Microbiology 05/26/20 Urine Culture, Received Pending 05/25/20 Blood Culture, Received Pending 05/25/20 Blood Culture, Received Pending RODRI SCHWARTZ MD May 26, 2020 11:28
[2020-05-26 14:00] VITALS: BP 132/72
[2020-05-26] MEDS ORDERED: PROHANCE 279.3MG/ML 5ML VIAL As Ordered ONE (21:41)
[2020-05-26 22:00] VITALS: BP 129/64
--- NOTE | 2020-05-26 22:00 | REPVR ---
PROCEDURE INFORMATION: Exam: MR Lumbar Spine Without Contrast. Exam date and time: 05/26/2020 8:47 PM Age: 69 years old Clinical indication: Weakness; Additional info: Fall, weakness RT le TECHNIQUE: Imaging protocol: Multiplanar magnetic resonance images of the lumbar spine without intravenous contrast. COMPARISON: No relevant prior studies available. FINDINGS: Vertebrae: Grade 1 anterolisthesis at L4-L5. Multilevel endplate degenerative changes with small Schmorl's nodes at L2 and T12. Spinal cord: Conus medullaris terminates in normal position at L1. There is mild fatty infiltration of the filum terminale. Conus medullaris is unremarkable. L1-L2: Mild facet DJD and hypertrophy. No disc herniation or spinal stenosis. No significant foraminal stenosis. L2-L3: There is advanced facet DJD and hypertrophy. Disc degeneration with small posterior disc bulge. No significant foraminal stenosis. L3-L4: There is advanced facet DJD and hypertrophy. Mild disc degeneration. No disc herniation or spinal stenosis. Mild left foraminal stenosis. L4-L5: Disc degeneration with small posterior disc bulge. There is advanced facet DJD and hypertrophy. Grade 1 anterolisthesis. Mild lateral recess stenosis, slightly worse on the left. Mild-moderate foraminal stenosis, worse on the left. L5-S1: No disc herniation or spinal stenosis. Mild facet DJD and hypertrophy. No significant foraminal stenosis. Soft tissues: Unremarkable. IMPRESSION: 1. Multilevel degenerative spondylosis as above. 2. No spinal stenosis or disc herniation. 3. No acute findings. 4. Mild fatty infiltration of the filum terminale. No filar mass or signs of cord tethering. Electronically signed by: Tani Bobo On 05/26/2020 22:00:34 PM
--- NOTE | 2020-05-26 22:07 | REPVR ---
PROCEDURE INFORMATION: Exam: MR Right Lower Extremity Joint Without and With Contrast; Hip Exam date and time: 05/26/2020 9:56 PM Age: 69 years old Clinical indication: Pain; Weakness; Hip; Bilateral; Additional info: Fall, weakness RT le TECHNIQUE: Imaging protocol: MR of the Right lower extremity joint without and with contrast. Exam focused on the hip. Contrast material: PROHANCE; Contrast volume: 8 ml; Contrast route: INTRAVENOUS (IV); COMPARISON: No relevant prior studies available. FINDINGS: Bones and cartilage: Normal hip alignment. No pelvic fracture is seen. Joint spaces: Mild bilateral hip joint space narrowing. No hip joint effusion or signs of synovitis. Labrum: Unremarkable. No tear. Bursae: Mild edema in the region the trochanteric bursa. No bursal fluid collection. TENDONS: Tendons of iliopsoas group: Unremarkable. No evidence of tear. Tendons of medial compartment of thigh: Unremarkable. No evidence of tear. Tendons of lateral rotators of hip: Unremarkable. No evidence of tear. Tendons of gluteal group: Edema is also noted in the right gluteus musculature. Muscles: There is mild intramuscular edema involving the hip abductor muscles and ileopsoas muscles bilaterally, slightly worse on the right. Soft tissues: The exam is degraded by patient motion artifact. IMPRESSION: 1. Motion limited exam. 2. Intramuscular edema involving the hip abductors and ileopsoas muscles, worse on the right, and in the right gluteus musculature suggesting muscle strain. Electronically signed by: Tani Bobo On 05/26/2020 22:07:24 PM
[2020-05-27 06:00] VITALS: BP 135/60
[2020-05-27 07:01] LABS: ALBUMIN 2.3 GM/DL (3.2-5.2); BILIRUBIN,TOTAL 0.2 MG/DL (0.2-1.0); CALCIUM LEVEL 8.5 MG/DL (8.8-10.2); CREATININE FOR GFR 1.04 MG/DL (0.55-1.30); GLOMERULAR FILTRATION RATE 56.1 (>45); MAGNESIUM LEVEL 1.7 MG/DL (1.8-2.4); POTASSIUM SERUM 3.3 MEQ/L (3.5-5.1); TOTAL PROTEIN 5.1 GM/DL (6.4-8.2)
[2020-05-27 07:04] LABS: BASO % 0.4 % (0.0-1.0); EOS % 0.1 % (0.0-3.0); HEMATOCRIT 30.9 % (36.0-47.0); HEMOGLOBIN 9.8 g/dl (12.0-15.5); LYMPH # 0.6 10^3/uL (1.5-5.0); LYMPH % 8.7 % (24.0-44.0); MEAN CORPUSCULAR HGB CONC 31.7 g/dl (32.0-36.5); MEAN CORPUSCULAR VOLUME 85.1 fl (80.0-96.0); MONO # 1.3 10^3/uL (0.0-0.8); MONO % 19.2 % (0.0-5.0); NEUTROPHILS # 4.8 10^3/uL (1.5-8.5); NEUTROPHILS % 70.6 % (36.0-66.0); PLATELET COUNT, AUTOMATED 127 10^3/uL (150-450); RED BLOOD COUNT 3.63 10^6/uL (4.00-5.40); WHITE BLOOD COUNT 6.8 10^3/uL (4.0-10.0)
[2020-05-27] MEDS ORDERED: MAG SULF 1GM/100ML (MAG RUN) 1 GM in IV 1 EA IV ONE (09:00)
[2020-05-27] MEDS ORDERED: POTASSIUM CHLORIDE 10 MEQ SR TABLET PO ONE (09:00)
[2020-05-27] MEDS ORDERED: CEFP200T PO (09:27)
[2020-05-27] MEDS ORDERED: ACET1TAB55 PO (09:27)
[2020-05-27] MEDS: VITAMIN D 1,000 INTERNATIONAL UNITS TABLET PO SCH (09:40)
[2020-05-27] MEDS: DOCUSATE SODIUM 100 MG CAP PO SCH (09:40)
[2020-05-27] MEDS: FOLIC ACID 1 MG TAB PO SCH (09:40)
[2020-05-27] MEDS: cefTRIAXone SOD 1 GM in D5W MINI-BAG PLUS 50 ML IV SCH (09:41)
--- NOTE | 2020-05-27 11:24 | DS.PDOC ---
Discharge Summary General Date of Admission May 25, 2020 at 15:33 Date of Discharge 05/27/20 Discharge Summary PROCEDURES PERFORMED DURING STAY: [None]. ADMITTING DIAGNOSES: 1. [frequent fall, gait disturbance]. DISCHARGE DIAGNOSES: 1. [frequent falls, difficulty ambulation,Gait disturbance,bilat LE muscle strain,]. COMPLICATIONS/CHIEF COMPLAINT: Frequent Falls Gait Disturbance. HISTORY OF PRESENT ILLNESS: [69 YO female with PMHx of recurrent kidney stones,leukemia, depresion,dysthymia was in her usual state of health till Friday(05/22), when her two uretral stents were removed, she flt some dull ache in abdomen but it resolved spontanoiusly but since last two days, she has been feeling dizzyness, loosing her balance and fell two times. She flls like she is flying when she takes a down step, and has weakneess in getting out of bed. No headache, no fever, no urinary incontinence.She stopped taking all her pills about two days ago once the symptoms appeared.]. HOSPITAL COURSE: [ (1) Gait disturbance Pts all W/U including MRI and MRA of brain are negative But on exam, there is observable weakness RLE with tend at LS spine on palpation Later MRI of LS sopine and Hips was orderd, which is consistant with Bilat Hip strain RT >Lt. Pt today tolerated PT very well, she has been ambulation in hallways with out any problems with a walker. Pt will be DC home and she can F/u with her PCP in one week Pt advised to use walker at all times when ambulating. she also has been prescribed PO anti Bx for UTI and advised to get report of her Urine cultures through her PCP when discharged. DISCHARGE MEDICATIONS: Please see below. ALLERGIES: Please see below. PHYSICAL EXAMINATION ON DISCHARGE: VITAL SIGNS: Please see below. GENERAL: [WNL] HEENT: [DEAN/EOMI] NECK: [Supple ] CARDIOVASCULAR EXAMINATION: [S1 S2 regular] RESPIRATORY EXAMINATION: [clear to A&P] ABDOMINAL EXAMINATION: [Soft ,NT, Bs present] EXTREMITIES: [no CCE] SKIN: [NL] NEUROLOGICAL EXAMINATION: [today has motor strength 5/5 all extremities.] PSYCHIATRIC EXAMINATION: [NL] LABORATORY DATA: Please see below. IMAGING: [MRI HIPS:] IMPRESSION: 1. Motion limited exam. 2. Intramuscular edema involving the hip abductors and ileopsoas muscles, worse on the right, and in the right gluteus musculature suggesting muscle strain. MR LS SPINE:IMPRESSION: 1. Multilevel degenerative spondylosis as above. 2. No spinal stenosis or disc herniation. 3. No acute findings. 4. Mild fatty infiltration of the filum terminale. No filar mass or signs of cord tethering. PROGNOSIS: [good] ACTIVITY: [As tolerated]. DIET: [as tolerated] DISCHARGE PLAN: [DC home] DISPOSITION: .home DISCHARGE INSTRUCTIONS: 1. [as per Dc instruction]. ITEMS TO FOLLOWUP ON ON OUTPATIENT: 1. [F/U with PCP in one week]. DISCHARGE CONDITION: [Stable]. TIME SPENT ON DISCHARGE: 42 minutes. Vital Signs/I&Os Vital Signs Date Time Temp Pulse Resp B/P (MAP) Pulse Ox O2 Delivery O2 Flow Rate FiO2 05/27/20 06:00 98.4 74 18 135/60 (85) 97 Room Air I&O- Last 24 Hours up to 6 AM 05/27/20 06:00 Intake Total 2310 ml Output Total 900 ml Balance 1410 ml Laboratory Data Labs 24H Laboratory Tests 2 05/27/20 05:51: Immature Granulocyte % (Auto) 1.0, Neutrophils (%) (Auto) 70.6H, Lymphocytes (%) (Auto) 8.7L, Monocytes (%) (Auto) 19.2H, Eosinophils (%) (Auto) 0.1, Basophils (%) (Auto) 0.4, Neutrophils # (Auto) 4.8, Lymphocytes # (Auto) 0.6L, Monocytes # (Auto) 1.3H, Eosinophils # (Auto) 0.0, Basophils # (Auto) 0.0, Nucleated Red Blood Cells % (auto) 0.0, Anion Gap 8, Glomerular Filtration Rate 56.1, Calcium Level 8.5L, Magnesium Level 1.7L, Total Bilirubin 0.2, Aspartate Amino Transf (AST/SGOT) 28, Alanine Aminotransferase (ALT/SGPT) 27, Alkaline Phosphatase 42L, Total Protein 5.1L, Albumin 2.3L, Albumin/Globulin Ratio 0.8L CBC/BMP Laboratory Tests 05/27/20 05:51 Microbiology Microbiology 05/26/20 Urine Culture - Final, Complete 05/25/20 Blood Culture - Preliminary, Resulted No growth after 24 hours . All specim... 05/25/20 Blood Culture - Preliminary, Resulted No growth after 24 hours . All specim... Discharge Medications Scheduled Bupropion Hcl (Bupropion Xl) 150 Mg Tab.er.24h, 150 MG PO DAILY, (Reported) Calcium Polycarbophil (Fibercon) 625 Mg Tab, 625 MG PO DAILY, (Reported) Cefpodoxime Proxetil (Cefpodoxime Proxetil) 200 Mg Tablet, 1 TAB PO BID Cholecalciferol (Vitamin D3) (Vitamin D3) 1,000 Unit Tablet, 1,000 UNITS PO DAILY, (Reported) Fluoxetine Hcl (Fluoxetine HCl) 40 Mg Cap, 40 MG PO DAILY, (Reported) TAKES WITH 20MG FOR TOTAL DOSE OF 60MG Fluoxetine Hcl (Fluoxetine HCl) 20 Mg Capsule, 20 MG PO DAILY, (Reported) TAKES WITH 40MG FOR TOTAL DOSE OF 60MG Folic Acid (Folic Acid) 1 Mg Tablet, 1 MG PO DAILY, (Reported) Scheduled PRN Acetaminophen (Acetaminophen) 325 Mg Tablet, 650 MG PO Q4H PRN for PAIN OR FEVER Allergies Coded Allergies: meperidine (Verified Adverse Reaction, Unknown, nausea, 05/25/20) RODRI SCHWARTZ MD May 27, 2020 11:24
[2020-05-27] MEDS: FIBER-CON 625 MG TAB PO SCH (12:30)
--- NOTE | 2020-06-07 12:58 | ECGEPIP ---
[facility] - ED Test Date: 2020-05-25 Pat Name: RIO MOCTEZUMA Department: Room: - Gender: Female Stock [employer]: : 1950 Requested By: ANABELLA Tran Order Number: [id number] Reading MD: Dipti Forte Measurements Intervals [place] Rate: 81 P: 43 DC: 165 QRS: -21 QRSD: 90 T: 58 QT: 356 QTc: 414 Interpretive Statements SINUS RHYTHM INFERIOR MYOCARDIAL INFARCTION, PROBABLY OLD WITH POSTERIOR EXTENSION NSTT WAVE ABNORMALITY SEE SCANNED DOWNTIME REPORT
--- NOTE | 2020-07-07 15:48 | ECHO ---
DATE OF PROCEDURE: 05/25/2020 Age: 69 Gender: Female Height: 160 cm Weight: 83 kg REFERRING PHYSICIAN: Braydon William MD INDICATION: Syncope MEASUREMENTS: 2D measurements: Aortic root 2.7 cm Atrial septum 0.86 cm Posterior wall 0.69 cm Left ventricle diastole 4.7 cm Left atrium 3.4 cm Inferior vena cava 1.3 cm (more than 50% respiratory variation) DOPPLER MEASUREMENTS: No aortic regurgitation Aortic valve velocity 135 cm/s LVOT velocity 115 cm/s LVOT VTI 21.7 cm No mitral stenosis No mitral regurgitation Mitral E velocity 93.8 cm/s Mitral A velocity 108 cm/s Mitral deceleration time 243 millisecond No tricuspid regurgitation No pulmonic regurgitation Pulmonary acceleration time 119 milliseconds MITRAL ANNULAR TISSUE DOPPLER E prime septal 9.7. cm/s E prime lateral 8.5 cm/s DESCRIPTION: Rhythm was sinus. This was a moderately technically difficult echocardiogram. This was a 2D, M-mode, color flow Doppler and pulse wave Doppler examination, including mitral annular tissue Doppler. CONCLUSIONS: 1. Normal left ventricle internal dimensions and wall thickness. Normal regional LV wall motion and wall thickening. Normal LV systolic function. Left ventricular ejection fraction (LVEF) 65% by visual estimate. Grade I LV diastolic dysfunction (impaired relaxation filling pattern) 2. No pericardial effusion. 3. Suggestive of pulmonary artery systolic pressure in the normal range. 4. Otherwise normal appearing echocardiogram/Doppler findings. MTDD
== END 2020-05-27 14:38 | disposition home or self-care (01) | DRG 93 ==
LOC: M ED 10:47 → M ED INP 15:33 → ENRESERV 15:48 → M MSPAV 18:07
PROVIDERS: ADMIT Internal Medicine; ATTEND Internal Medicine
DX: R26.89 Other abnormalities of gait and mobility (principal); R29.6 Repeated falls; F32.9 Major depressive disorder, single episode, unspecified; Z79.899 Other long term (current) drug therapy; Z88.8 Allergy status to other drugs, medicaments and biological substances; R42 Dizziness and giddiness

== ENCOUNTER → 2020-06-07 | Outpatient (REF) | payer MEDICARE ==
[~2020-06-07] MED LIST changes: +ACET1TAB55 PO; +BUPR150T3 PO; +CEFP200T PO; +D31000TA2 PO; +ESTR0.1C5; +FLUO20CA22 PO; +FOLI1TAB11 PO; +OXYB5TAB10; +SULF1TAB93
[2020-06-07 17:35] LABS: APPEARANCE, URINE HAZY (CLEAR); BACTERIA, URINE AUTO NEGATIVE (NEGATIVE); BILIRUBIN, URINE AUTO NEGATIVE (NEGATIVE); BLOOD, URINE BLOOD 1+ (NEGATIVE); COLOR, URINE YELLOW (YELLOW); GLUCOSE, URINE (UA) AUTO NEGATIVE (NEGATIVE); KETONE, URINE AUTO NEGATIVE (NEGATIVE); LEUKOCYTE ESTERASE, URINE AUTO TRACE (NEGATIVE); MUCUS, URINE SMALL (NEGATIVE); NITRITE, URINE AUTO NEGATIVE (NEGATIVE); PROTEIN, URINE AUTO NEGATIVE (NEGATIVE); RBC, URINE AUTO 1 /HPF (0-3); SPECIFIC GRAVITY URINE AUTO 1.011 (1.002-1.035); SQUAMOUS EPITHELIAL CELL UR AU 4 /HPF (0-6); UROBILINOGEN, URINE AUTO 0.2 mg/dL (0.0-2.0); WBC, URINE AUTO 6 /HPF (0-3)
== END ==
LOC: M LAB REF 07:53
PROVIDERS: ATTEND Internal Medicine
DX: N39.0 Urinary tract infection, site not specified (principal)

== ENCOUNTER → 2020-10-09 | Outpatient (REF) | payer MEDICARE ==
[~2020-10-09] MED LIST changes: -BUPR150T3 PO; +BUPR150T4 PO
[2020-10-09 17:05] LABS: FOLATE 8.7 NG/ML
== END ==
LOC: M LAB REF 16:29
PROVIDERS: ATTEND Internal Medicine
DX: D51.9 Vitamin B12 deficiency anemia, unspecified (principal); Z98.84 Bariatric surgery status

== ENCOUNTER → 2020-12-07 | Outpatient (CLI) | payer MEDICARE ==
[~2020-12-07] MED LIST changes: +BUPR150T12 PO; -BUPR150T4 PO
--- NOTE | 2020-12-07 14:16 | REP ---
INDICATION: KIDNEY STONES. COMPARISON: Comparison KUB study May 19, 2020.. TECHNIQUE: Two views. Supine. FINDINGS: There are surgical clips in the right upper quadrant, surgical sutures in the left upper quadrant, and scattered surgical clips throughout the lower abdomen bilaterally. These are unchanged. Bowel gas pattern is normal. No mass, organomegaly or definite urinary tract calculus is seen. There are degenerative changes at the lumbosacral junction. No acute bony abnormality is seen. IMPRESSION: No definite urinary tract calculus seen. Previously noted ureteral stents have been removed. Scattered surgical clips. <Electronically signed by Rafat Naav > 12/07/20 [id number]
== END ==
LOC: M WUC 13:03
PROVIDERS: ATTEND Urology
DX: N20.2 Calculus of kidney with calculus of ureter (principal)

== ENCOUNTER → 2021-04-03 | Outpatient (REF) | payer MEDICARE ==
[~2021-04-03] MED LIST changes: +BACTDSTA; -SULF1TAB93
== END ==
LOC: M LAB REF 16:20
PROVIDERS: ATTEND Internal Medicine
DX: N39.0 Urinary tract infection, site not specified (principal)

== ENCOUNTER → 2021-09-07 | Outpatient (REF) | payer MEDICARE ==
[2021-09-07 17:51] LABS: HEMATOCRIT 40.7 % (36.0-47.0)
[2021-09-07 18:10] LABS: PERCENT SATURATION 29.5 % (13.2-45.0)
[2021-09-12 00:09] LABS: ERYTHROPOIETIN 24.4 mIU/mL (2.6-18.5)
== END ==
LOC: M LAB REF 16:28
PROVIDERS: ATTEND Internal Medicine
DX: C92.01 Acute myeloblastic leukemia, in remission (principal); E55.9 Vitamin D deficiency, unspecified

== ENCOUNTER → 2021-12-10 | Outpatient (CLI) | payer MEDICARE, BC ==
[~2021-12-10] MED LIST changes: -D31000TA2 PO; +VITA100093 PO
== END ==
LOC: M CARPUL 12:13
PROVIDERS: ATTEND Internal Medicine Hematology & Oncology
DX: R06.00 Dyspnea, unspecified (principal); R63.4 Abnormal weight loss; C92.01 Acute myeloblastic leukemia, in remission; E55.9 Vitamin D deficiency, unspecified; E53.8 Deficiency of other specified B group vitamins

== ENCOUNTER → 2021-12-31 | Outpatient (CLI) | payer MEDICARE, BC | LOC: M WUC 09:29 | PROVIDERS: ATTEND Urology | DX: N20.0 Calculus of kidney (principal); R93.5 Abnormal findings on diagnostic imaging of other abdominal regions, including retroperitoneum ==

== ENCOUNTER → 2022-01-04 | Outpatient (REF) | payer MEDICARE, BC ==
[2022-01-04 13:57] LABS: APPEARANCE, URINE CLOUDY (CLEAR); BACTERIA, URINE AUTO 1+ (NEGATIVE); BILIRUBIN, URINE AUTO NEGATIVE (NEGATIVE); BLOOD, URINE BLOOD NEGATIVE (NEGATIVE); CALCIUM OXALATE CRYSTALS LARGE; COLOR, URINE YELLOW (YELLOW); GLUCOSE, URINE (UA) AUTO NEGATIVE (NEGATIVE); KETONE, URINE AUTO TRACE mg/dL (NEGATIVE); LEUKOCYTE ESTERASE, URINE AUTO NEGATIVE (NEGATIVE); MUCUS, URINE SMALL (NEGATIVE); NITRITE, URINE AUTO NEGATIVE (NEGATIVE); PROTEIN, URINE AUTO 1+ mg/dL (NEGATIVE); RBC, URINE AUTO 2 /HPF (0-3); SPECIFIC GRAVITY URINE AUTO 1.023 (1.002-1.035); SQUAMOUS EPITHELIAL CELL UR AU 1 /HPF (0-6); WBC, URINE AUTO 9 /HPF (0-3)
== END ==
LOC: M SMT 13:09
PROVIDERS: ATTEND Urology
DX: R31.29 Other microscopic hematuria (principal)

== ENCOUNTER → 2022-03-04 | Outpatient (REF) | payer MEDICARE, BC ==
[2022-03-04 17:23] LABS: HEMATOCRIT 36.1 % (36.0-47.0)
[2022-03-04 17:45] LABS: PERCENT SATURATION 22.8 % (13.2-45.0)
== END ==
LOC: M LAB REF 16:27
PROVIDERS: ATTEND Internal Medicine
DX: C92.01 Acute myeloblastic leukemia, in remission (principal); E53.8 Deficiency of other specified B group vitamins

== ENCOUNTER → 2022-08-14 | Outpatient (REF) | payer MEDICARE, BC ==
[2022-08-14 18:29] LABS: ANISOCYTOSIS 2+; ATYPICAL LYMPH 7 % (0-5); BASOPHILS 3 % (0-1); EOSINOPHILS 1 % (0-3); LYMPHOCYTES 65 % (16-44); MONOCYTES 6 % (0-5); NEUTROPHILS 17 % (28-66); PLATELET ESTIMATE NORMAL (NORMAL); PROMYELOCYTES 1 % (0-0); TEAR DROP CELLS 1+
[2022-08-14 18:31] LABS: HYPOCHROMASIA 1+; POIKILOCYTOSIS 1+; POLYCHROMASIA 1+
== END ==
LOC: M LAB REF 16:27
PROVIDERS: ATTEND Internal Medicine
DX: C94.6 Myelodysplastic disease, not elsewhere classified (principal); C92.01 Acute myeloblastic leukemia, in remission

== ENCOUNTER → 2023-01-27 | Outpatient (CLI) | payer MEDICARE, BC | LOC: M WUC 09:55 | PROVIDERS: ATTEND Urology | DX: N20.0 Calculus of kidney (principal); Z90.49 Acquired absence of other specified parts of digestive tract ==

== ENCOUNTER → 2024-07-27 | Outpatient (REF) | payer MEDICARE, OTHER ==
[~2024-07-27] MED LIST changes: +FLUO-365 PO; -FLUO20CA22 PO; -OXYB5TAB10; +OXYB5TAB14
== END ==
LOC: M LAB REF 16:22
PROVIDERS: ATTEND Physician Assistant
DX: N30.00 Acute cystitis without hematuria (principal)

== ENCOUNTER 2025-06-30 09:08 | Day surgery (SDC) | payer OTHER ==
[~2025-06-30] VITALS: Ht 160 cm; Wt 76.2 kg
[~2025-06-30 09:08] MED LIST changes: +BUPR-766 PO; +MIDAZOLAM INJ 2 MG/2 ML VIAL As Ordered ONE; +PHENYLEPHRINE 10% OPHTH SOL 5ML OD PRN; +VALA-3 PO; +VITA1CAP25 PO
[2025-06-30] MEDS: OFLOXACIN 0.3 % (OCUFLOX) OPTH SOL 5ML OD ONE (11:41)
[2025-06-30] MEDS: PHENYLEPHRINE 2.5% OPHTH SOL 2ML OD SCH (11:41)
[2025-06-30] MEDS: LIDOCAINE 3.5% 1 ML OPHTH TOPICAL GEL OU ONE (11:41)
[2025-06-30] MEDS: TROPICAMIDE 1% OPHTH SOLN 15ML OD SCH (11:41)
[2025-06-30] MEDS: CYCLOPENTOLATE 1% OPHTH SOLN 2 ML BTL OD SCH (11:41)
[2025-06-30] MEDS: LIDOCAINE 1% SDV 5 ML VIAL As Ordered ONE (12:52)
[2025-06-30] MEDS: BSS IRRIG/VANCO(10MG)/TOBRA(5MG)/EPINEPH(1:1000-0.5CC)500ML BAG-ORONLY As Ordered ONE (12:53)
[2025-06-30] MEDS: CEFUROXIME 1 MG/0.1 ML INTRACAMERAL INJ As Ordered ONE (12:53)
[2025-06-30 13:04] VITALS: BP 146/65; TEMP 96.9; O2SAT 97
== END 2025-06-30 13:19 | disposition home or self-care (01) ==
LOC: M SDC 09:08
PROVIDERS: ATTEND Ophthalmology
DX: H25.11 Age-related nuclear cataract, right eye (principal); Z85.6 Personal history of leukemia; Z92.21 Personal history of antineoplastic chemotherapy; Z79.899 Other long term (current) drug therapy; Z98.84 Bariatric surgery status; F41.9 Anxiety disorder, unspecified; F32.A Depression, unspecified
CPT/HCPCS: 66984; J0697; J2250; J3010; V2632

== ENCOUNTER 2025-07-21 05:57 | Day surgery (SDC) | payer OTHER ==
[~2025-07-21] VITALS: Ht 160 cm; Wt 76.0 kg
[~2025-07-21 05:57] MED LIST changes: -MIDAZOLAM INJ 2 MG/2 ML VIAL As Ordered ONE; -PHENYLEPHRINE 10% OPHTH SOL 5ML OD PRN
[2025-07-21] MEDS ORDERED: PHENYLEPHRINE 10% OPHTH SOL 5ML OS PRN (06:00)
[2025-07-21] MEDS: LIDOCAINE 3.5% 1 ML OPHTH TOPICAL GEL OU ONE (07:08)
[2025-07-21] MEDS: OFLOXACIN 0.3 % (OCUFLOX) OPTH SOL 5ML OS ONE (07:08)
[2025-07-21] MEDS: CYCLOPENTOLATE 1% OPHTH SOLN 2 ML BTL OS SCH (07:09)
[2025-07-21] MEDS: TROPICAMIDE 1% OPHTH SOLN 15ML OS SCH (07:09)
[2025-07-21] MEDS: PHENYLEPHRINE 2.5% OPHTH SOL 2ML OS SCH (07:09)
[2025-07-21] MEDS ORDERED: MIDAZOLAM INJ 2 MG/2 ML VIAL As Ordered ONE (07:14)
[2025-07-21] MEDS: BSS IRRIG/VANCO(10MG)/TOBRA(5MG)/EPINEPH(1:1000-0.5CC)500ML BAG-ORONLY As Ordered ONE (07:48)
[2025-07-21] MEDS: CEFUROXIME 1 MG/0.1 ML INTRACAMERAL INJ As Ordered ONE (07:48)
[2025-07-21] MEDS: LIDOCAINE 1% SDV 5 ML VIAL As Ordered ONE (07:48)
[2025-07-21 08:00] VITALS: BP 127/64; TEMP 97; O2SAT 96
== END 2025-07-21 08:14 | disposition home or self-care (01) ==
LOC: M SDC 05:57
PROVIDERS: ATTEND Ophthalmology
DX: E11.36 Type 2 diabetes mellitus with diabetic cataract (principal); H25.12 Age-related nuclear cataract, left eye; C92.01 Acute myeloblastic leukemia, in remission; F41.9 Anxiety disorder, unspecified; F32.A Depression, unspecified; Z98.84 Bariatric surgery status; Z79.899 Other long term (current) drug therapy; Z90.710 Acquired absence of both cervix and uterus; Z88.5 Allergy status to narcotic agent; Z88.8 Allergy status to other drugs, medicaments and biological substances; Z90.89 Acquired absence of other organs; Z92.21 Personal history of antineoplastic chemotherapy; I10 Essential (primary) hypertension; E78.00 Pure hypercholesterolemia, unspecified; D51.9 Vitamin B12 deficiency anemia, unspecified; E55.9 Vitamin D deficiency, unspecified
CPT/HCPCS: 66984; J0697; J2250; J3010; V2632

== ENCOUNTER → 2025-09-21 | Outpatient (REF) | payer MEDICARE, OTHER ==
[~2025-09-21] MED LIST changes: -BACTDSTA; +SULF-8
== END ==
LOC: M LAB REF 11:42
PROVIDERS: ATTEND Physician Assistant
DX: R30.0 Dysuria (principal)